=== PATIENT | female | born 1990 | race Caucasian/White ===

== ENCOUNTER 2024-02-05 17:55 | Emergency (ER) | payer BC ==
[2024-02-05 20:40] LABS: Appearance,Urine Clear (Clear); Bilirubin,Urine Negative (Negative); Blood,Urine Negative (Negative); Color,Urine Light Yellow; Glucose,Urine (UA) Negative (Negative); Ketones,Urine 1+ (Negative); Leukocyte Esterase,Urine Negative (Negative); Nitrite,Urine Negative (Negative); Protein,Urine Negative (Negative); Urobilinogen,Urine <2.0 mg/dL (<2.0)
[2024-02-05 20:50] LABS: Basophils % (A) 0 %; Eosinophils # (A) 0.1 k/uL (0-0.7); Eosinophils % (A) 2 %; HCT 42.3 % (34.0-46.0); HGB 13.9 gm/dL (11.4-16.0); Lymphocytes # (A) 2.4 k/uL (1.0-4.8); Lymphocytes % (A) 38 %; MCH 30.8 pg (25.0-35.0); MCHC 32.9 g/dL (31.0-37.0); MCV 93.8 fL (80.0-100.0); Mean Platelet Volume 7.3; Monocytes # (A) 0.2 k/uL (0-1.0); Monocytes % (A) 3 %; Neutrophils # (A) 3.5 k/uL (1.3-7.7); Neutrophils % (A) 55 %; Platelet Count 304 k/uL (150-450); RBC 4.51 m/uL (3.80-5.40); RDW 13.3 % (11.5-15.5); WBC 6.4 k/uL (3.8-10.6)
[2024-02-05 20:52] LABS: ALT 49 U/L (4-34); AST 96 U/L (14-36); African American GFR (CKD) >90 (>60 ml/min/1.73 sqM); Albumin 4.2 g/dL (3.5-5.0); Alkaline Phosphatase 105 U/L (38-126); Anion Gap 15 mmol/L; Blood Urea Nitrogen <2 mg/dL (7-17); Calcium 8.8 mg/dL (8.4-10.2); Carbon Dioxide 20 mmol/L (22-30); Chloride 112 mmol/L (98-107); Glucose 74 mg/dL (74-99); Lipase 147 U/L (23-300); Non-African American GFR(CKD) >90 (>60 ml/min/1.73 sqM); Sodium 147 mmol/L (137-145); Total Bilirubin 0.7 mg/dL (0.2-1.3); Total Protein 6.7 g/dL (6.3-8.2)
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
[2024-02-05 20:58] LABS: Amphetamine Screen,Urine Not Detected (NotDetected); Barbiturate Screen,Urine Not Detected (NotDetected); Benzodiazepines Screen,Urine Not Detected (NotDetected); Cocaine Screen,Urine Not Detected (NotDetected); Methadone Screen, Urine Not Detected (NotDetected); Opiate Screen,Urine Not Detected (NotDetected); Oxycodone Screen, Urine Not Detected (NotDetected); Phencyclidine Screen,Urine Not Detected (NotDetected); Tricyclic Antidepressant,Urine Detected (NotDetected); Urn Cannabinoid Scrn Detected (NotDetected)
[2024-02-05] MEDS: SODIUM CHLORIDE 0.9% 2,000 ML IV ONE (21:14)
[2024-02-05] MEDS: SODIUM CHLORIDE 0.9% 1,000 ML IV STA (22:25)
[2024-02-05] MEDS: LORazepam 2 MG/ML INJ IV PRN (22:29)
[2024-02-05 22:41] LABS: Magnesium 1.8 mg/dL (1.6-2.3); Phosphorus 3.3 mg/dL (2.5-4.5)
[2024-02-05] MEDS: NICOTINE 14MG/24HR PATCH TRANSDERM STA (23:15)
[2024-02-06] MEDS: SODIUM CHLORIDE 0.9% 1,000 ML IV STA (04:14)
[2024-02-06] MEDS ORDERED: MECLIZINE 12.5 MG TAB PO PRN (09:32)
[2024-02-06] MEDS ORDERED: LORazepam 0.5 MG TAB PO PRN (09:32)
[2024-02-06] MEDS: GABAPENTIN 300 MG CAP PO STA (09:58)
[2024-02-06 10:45] VITALS: BP 134/94; PULSE 97; RESP 18; TEMP 98.7
[2024-02-06] MEDS ORDERED: GABAPENTIN 300 MG CAP PO SCH (16:00)
[2024-02-06] MEDS ORDERED: busPIRone HCl 5 MG TAB PO SCH (16:00)
[2024-02-06] MEDS ORDERED: AMITRIPTYLINE HCL 25 MG TAB PO SCH (21:00)
[2024-02-07] MEDS ORDERED: LEVOTHYROXINE 75 MCG TAB PO SCH (06:30)
[2024-02-07] MEDS ORDERED: PANTOPRAZOLE 40 MG TABLET PO SCH (07:30)
[2024-02-07] MEDS ORDERED: KERATIN PO SCH (09:00)
[2024-02-07] MEDS ORDERED: BIOTIN 10000 MCG PO SCH (09:00)
[2024-02-07] MEDS ORDERED: THIAMINE 100 MG TAB PO SCH (09:00)
[2024-02-07] MEDS ORDERED: MULTIVITAMINS, THERA 1 EACH TAB PO SCH (09:00)
[2024-02-07] MEDS ORDERED: TAMSULOSIN 0.4 MG CAP.ER.24H PO SCH (09:00)
== END 2024-02-06 11:08 | disposition home or self-care (01) ==
LOC: EC 17:55
DX: R45.851 Suicidal ideations (principal); F10.129 Alcohol abuse with intoxication, unspecified; F17.290 Nicotine dependence, other tobacco product, uncomplicated; Z91.040 Latex allergy status; Z91.013 Allergy to seafood; Y90.0 Blood alcohol level of less than 20 mg/100 ml
CPT/HCPCS: 82075; 36415; 80053; 83605 ×2; 83690; 83735; 84100; 84443; 85025; 81003; 80306; 99285; 96374; 96361 ×2; S4990; J2060